=== PATIENT | male | born 1965 | race American Indian/Alaskan Native ===

== ENCOUNTER 2018-01-19 17:01 | Emergency (ER) | payer OTHER ==
[2018-01-19] MEDS ORDERED: TYLENOL ONE (17:12)
[2018-01-19] MEDS ORDERED: NACL 0.9% 1000 ML IV ONE (18:21)
[2018-01-19] MEDS ORDERED: TYLENOL PO ONE (18:24)
[2018-01-19] MEDS ORDERED: VANCOMYCIN VIAL IV ONE (18:24)
[2018-01-19] MEDS ORDERED: DILAUDID IV ONE (18:25)
--- NOTE | 2018-01-19 18:26 | Emergency Department Report ---
ED General Adult HPI - General Chief complaint: Fever Stated complaint: BACK PAIN/FEVER Time Seen by Provider: 01/19/18 18:12 Source: patient, RN notes reviewed, old records reviewed Mode of arrival: Ambulatory Limitations: No Limitations - History of Present Illness Initial comments: This is a pleasant 52-year-old gentleman who is not known to this provider previously, who denies chronic medical conditions. He presents to the ER complaint of nontraumatic paralumbar and parathoracic back pain which is been present for 5 days. The pain is sharp, increases with palpation, decreases with rest. It does not radiate anywhere. he denies headache, neck pain, chest pain, admits to mild lower abdominal pain and denies urinary symptoms. He denies weakness, numbness, saddle anesthesia, bladder or bowel retention incontinence, IV drug use. He also denies cough and to me denies diffuse body myalgias. -: Gradual, days(s) Location: back, abdomen Quality: aching Consistency: intermittent Improves with: rest Worsens with: movement Associated Symptoms: malaise. denies: confusion, chest pain, cough, diaphoresis , fever/chills, headaches, loss of appetite, nausea/vomiting, rash, seizure, shortness of breath, syncope, weakness - Related Data Previous Rx's Medication Instructions Recorded Last Taken Type Ketorolac [Toradol] 10 mg PO Q6H PRN #12 tablet 01/15/18 Unknown Rx methOCARBAMOL [Robaxin TAB] 500 mg PO Q6H PRN #20 tablet 01/15/18 Unknown Rx Allergies Allergy/AdvReac Type Severity Reaction Status Date / Time No Known Allergies Allergy Verified 01/19/18 17:10 ED Review of Systems ROS: Stated complaint: BACK PAIN/FEVER Other details as noted in HPI Comment: All other systems reviewed and negative Musculoskeletal: back pain ED Past Medical Hx - Past Medical History Previous Medical History?: No - Surgical History Past Surgical History?: No - Social History Smoking Status: Never Smoker Substance Use Type: None - Medications Home Medications: Home Medications Medication Instructions Recorded Confirmed Last Taken Type Ketorolac [Toradol] 10 mg PO Q6H PRN #12 tablet 18 01/19/18 Unknown Rx methOCARBAMOL [Robaxin TAB] 500 mg PO Q6H PRN #20 tablet 01/15/18 01/19/18 Unknown Rx ED Physical Exam - General Limitations: No Limitations General appearance: alert, anxious, in distress - Head Head exam: Present: atraumatic, normocephalic - Eye Eye exam: Present: normal appearance, EOMI. Absent: nystagmus - ENT ENT exam: Present: normal exam, normal orophraynx, mucous membranes moist, normal external ear exam - Neck Neck exam: Present: normal inspection, full ROM. Absent: tenderness, meningismus - Respiratory Respiratory exam: Present: normal lung sounds bilaterally. Absent: respiratory distress - Cardiovascular Cardiovascular Exam: Present: regular rate, normal rhythm, normal heart sounds. Absent: bradycardia, tachycardia, irregular rhythm, systolic murmur, diastolic murmur, rubs, gallop - GI/Abdominal GI/Abdominal exam: Present: soft, tenderness, other (there is right lower quadrant and right flank tenderness). Absent: distended, guarding, rebound, rigid, pulsatile mass - Rectal Rectal exam: Present: deferred - Extremities Exam Extremities exam: Present: normal inspection, full ROM, normal capillary refill , other (2+ pulses noted in the bilateral upper, lower extremities. Compartments soft. No long bony tenderness. The pelvis is stable.). Absent: tenderness, pedal edema, joint swelling, calf tenderness - Back Exam Back exam: Present: normal inspection, full ROM, paraspinal tenderness, vertebral tenderness, other (there is distal thoracic and lumbar spine tenderness.). Absent: tenderness, CVA tenderness (R), CVA tenderness (L) - Neurological Exam Neurological exam: Present: alert, oriented X3, CN II-XII intact, other ( Extraocular movements intact. Tongue midline. No facial droop. Facial sensation intact to light touch in the V1, V2, V3 distribution bilaterally. 5 and 5 strength in 4 extremities.. Sensation is intact to light touch in 4 extremities.). Absent: motor sensory deficit (sensation is intact to light touch, pinprick and proprioception in the upper, lower extremities bilaterally.) - Psychiatric Psychiatric exam: Present: normal affect, normal mood - Skin Skin exam: Present: warm, dry, intact, normal color. Absent: rash ED Course Vital Signs 01/19/18 01/19/18 01/19/18 17:10 18:14 18:15 Temperature 101.7 F H Pulse Rate 97 H 95 H 100 H Respiratory 16 16 Rate Blood Pressure 123/78 111/70 O2 Sat by Pulse 99 98 99 Oximetry 01/19/18 01/19/18 01/19/18 18:31 18:45 18:59 Temperature Pulse Rate 77 81 Respiratory 20 22 18 Rate Blood Pressure 111/70 111/70 O2 Sat by Pulse 99 100 Oximetry 01/19/18 01/19/18 01/19/18 19:01 19:15 19:31 Temperature Pulse Rate 76 67 75 Respiratory 13 15 13 Rate Blood Pressure 111/70 135/79 135/79 O2 Sat by Pulse 98 98 97 Oximetry 01/19/18 20:31 Temperature Pulse Rate 80 Respiratory 19 Rate Blood Pressure 135/81 O2 Sat by Pulse 97 Oximetry - Reevaluation(s) Reevaluation #1: 01/19/18 19:42 Differential diagnosis, including but not limited to: Discitis, osteomyelitis, psoas abscess, intra-abdominal infection, pyelonephritis Assessment and plan: 52-year-old male with fever and heart rate greater than 90 , meeting systemic inflammatory response syndrome criteria. He is point tender in his thoracic and lumbar vertebra. He also has mild lower abdominal pain as well, most prominent on the right lower quadrant. He'll be treated empirically according to the sepsis pathway. CT scan of the abdomen and pelvis, as well as dedicated CT scans of the thoracic and lumbar spine pending. If these are nondiagnostic, we will obtain MR studies of the thoracic and lumbar spine to exclude emergent disease. His motor and sensory exam are normal at this time, and not consistent with epidural compression syndrome. Reevaluation #2: 01/19/18 21:24 Patient reports his pain is much improved. CT scan demonstrates left-sided psoas abscess, L2 to L5, with probable osteomyelitis, discitis at the L2, L3 level. This hospital does not have neurosurgery for spine surgery available for consultation. The patient has an emergency medical condition which cannot be definitively managed at this hospital, and he requires transfer to a higher level of care. Contacted [facility], and discussed the case with neurosurgeon, Dr. cantor, who agreed to see the patient in consultation. We are waiting to speak to the hospital physician to arrange transport and transfer. Reevaluation #3: 01/19/18 22:06 Patient accepted to the medical service at [facility] under Dr. Peyton Vieira ED Medical Decision Making - Lab Data Result diagrams: 01/19/18 18:39 01/19/18 18:39 Vital Signs 01/19/18 01/19/18 01/19/18 17:10 18:59 19:01 Temperature 101.7 F H Pulse Rate 97 H Respiratory 16 18 18 Rate Blood Pressure 123/78 O2 Sat by Pulse 99 100 Oximetry Lab Results 01/19/18 01/19/18 01/19/18 Range/Units 18:39 18:39 18:39 WBC 6.2 (4.5-11.0) K/mm3 RBC 4.21 (3.65-5.03) M/mm3 Hgb 11.6 L (11.8-15.2) gm/dl Hct 35.7 (35.5-45.6) % MCV 85 (84-94) fl MCH 28 (28-32) pg MCHC 33 (32-34) % RDW 14.3 (13.2-15.2) % Plt Count 208 (140-440) K/mm3 Lymph % (Auto) 6.5 L (13.4-35.0) % [place] % (Auto) 11.2 H (0.0-7.3) % Eos % (Auto) 0.0 (0.0-4.3) % Baso % (Auto) 0.5 (0.0-1.8) % Lymph # 0.4 L (1.2-5.4) K/mm3 [place] # 0.7 (0.0-0.8) K/mm3 Eos # 0.0 (0.0-0.4) K/mm3 Baso # 0.0 (0.0-0.1) K/mm3 Seg Neutrophils % 81.8 H (40.0-70.0) % Seg Neutrophils # 5.1 (1.8-7.7) K/mm3 APTT (24.2-36.6) Sec. Sodium (137-145) mmol/L Potassium (3.6-5.0) mmol/L Chloride (98-107) mmol/L Carbon Dioxide (22-30) mmol/L Anion Gap mmol/L BUN (9-20) mg/dL Creatinine (0.8-1.5) mg/dL Estimated GFR ml/min BUN/Creatinine Ratio % Glucose (75-100) mg/dL Lactic Acid 1.00 (0.7-2.0) mmol/L Calcium (8.4-10.2) mg/dL Total Bilirubin (0.1-1.2) mg/dL AST (5-40) units/L ALT (7-56) units/L Alkaline Phosphatase (35-129) units/L Total Creatine Kinase (55-170) units/L Total Protein (6.3-8.2) g/dL Albumin (3.9-5) g/dL Albumin/Globulin Ratio % Blood Type O POSITIVE Antibody Screen Negative 01/19/18 01/19/18 01/19/18 Range/Units 18:39 18:39 18:39 WBC (4.5-11.0) K/mm3 RBC (3.65-5.03) M/mm3 Hgb (11.8-15.2) gm/dl Hct (35.5-45.6) % MCV (84-94) fl MCH (28-32) pg MCHC (32-34) % RDW (13.2-15.2) % Plt Count (140-440) K/mm3 Lymph % (Auto) (13.4-35.0) % [place] % (Auto) (0.0-7.3) % Eos % (Auto) (0.0-4.3) % Baso % (Auto) (0.0-1.8) % Lymph # (1.2-5.4) K/mm3 [place] # (0.0-0.8) K/mm3 Eos # (0.0-0.4) K/mm3 Baso # (0.0-0.1) K/mm3 Seg Neutrophils % (40.0-70.0) % Seg Neutrophils # (1.8-7.7) K/mm3 APTT 33.7 (24.2-36.6) Sec. Sodium 137 (137-145) mmol/L Potassium 4.7 (3.6-5.0) mmol/L Chloride 99.2 (98-107) mmol/L Carbon Dioxide 26 (22-30) mmol/L Anion Gap 17 mmol/L BUN 22 H (9-20) mg/dL Creatinine 0.9 (0.8-1.5) mg/dL Estimated GFR > 60 ml/min BUN/Creatinine Ratio 24 % Glucose 116 H (75-100) mg/dL Lactic Acid (0.7-2.0) mmol/L Calcium 9.4 (8.4-10.2) mg/dL Total Bilirubin 0.60 (0.1-1.2) mg/dL AST 42 H (5-40) units/L ALT 46 (7-56) units/L Alkaline Phosphatase 62 (35-129) units/L Total Creatine Kinase 118 (55-170) units/L Total Protein 7.5 (6.3-8.2) g/dL Albumin 3.5 L (3.9-5) g/dL Albumin/Globulin Ratio 0.9 % Blood Type Antibody Screen - Radiology Data Radiology results: report reviewed, image reviewed Critical care attestation.: If time is entered above; I have spent that time in minutes in the direct care of this critically ill patient, excluding procedure time. ED Disposition Clinical Impression: Psoas abscess, left Sepsis Qualifiers: Sepsis type: sepsis due to unspecified organism Qualified Code(s): A41.9 - Sepsis, unspecified organism Disposition: DC/TX-70 ANOTHER TYPE [facility] Is pt being admited?: No Does the pt Need Aspirin: No Condition: Good Referrals: PRIMARY CARE, [Primary Care Provider] - 3-5 Days
[2018-01-19] MEDS ORDERED: MAXIPIME/NS 2 GM/100 ML 2 GM/100 ML BAG IV SCH (19:00)
[2018-01-19] MEDS ORDERED: VANCOMYCIN/NS 1 GM/250 ML 1 GM/250 ML BAG IV ONE (19:00)
[2018-01-19 19:05] LABS: Basophils % (Auto) 0.5 % (0.0-1.8); Hematocrit 35.7 % (35.5-45.6); Hemoglobin 11.6 gm/dl (11.8-15.2); Lymphocytes # (Auto) 0.4 K/mm3 (1.2-5.4); Lymphocytes % (Auto) 6.5 % (13.4-35.0); Mean Corpuscular HGB Conc 33 % (32-34); Mean Corpuscular Hemoglobin 28 pg (28-32); Mean Corpuscular Volume 85 fl (84-94); Monocytes # (Auto) 0.7 K/mm3 (0.0-0.8); Monocytes % (Auto) 11.2 % (0.0-7.3); Platelet Count 208 K/mm3 (140-440); Red Blood Count 4.21 M/mm3 (3.65-5.03); Red Cell Distribution Width 14.3 % (13.2-15.2)
[2018-01-19 19:25] LABS: Alanine Aminotransferase 46 units/L (7-56); Albumin 3.5 g/dL (3.9-5); BUN/Creatinine Ratio 24; Blood Urea Nitrogen 22 mg/dL (9-20); Calcium 9.4 mg/dL (8.4-10.2); Hemolysis Index 1
--- NOTE | 2018-01-19 20:44 | Cat Scan Report ---
FINAL REPORT EXAM: CT THORACIC SPINE WO CON HISTORY: back pain, fever, ? discitis versus osteomytlieis TECHNIQUE: Axial helical imaging through the thoracic spine with sagittal and coronal reformatted images obtained. Comparison: CT lumbar spine also performed today and CT abdomen and pelvis also performed today FINDINGS: Bony alignment is normal. The vertebral heights are maintained. There is a small nonspecific area of decreased density in the T3 vertebral body on the left. There is slight loss of height of multiple thoracic discs. There is no evidence of degenerative endplate change. There is no evidence of significant bony canal stenosis. Visualization detail the contents of the cervical canal is limited. Paraspinous soft tissues are unremarkable. IMPRESSION: 1. No evidence of diskitis and no definite evidence of osteomyelitis of the thoracic spine. 2. Small nonspecific area of decreased density in the T3 vertebral body on the left. Comparison with previous CT of the chest or CT thoracic spine would be helpful. If further imaging is required, MRI may be helpful.
--- NOTE | 2018-01-19 20:54 | Cat Scan Report ---
FINAL REPORT EXAM: CT ABDOMEN PELVIS W CON HISTORY: rlq abd pain back pain TECHNIQUE: Following IV administration of 100 cc of Omnipaque 350 axial helical imaging was performed through the abdomen and pelvis with sagittal and coronal reformatted images obtained. Comparison: CT lumbar spine also performed today FINDINGS: The lung bases are notable for areas of pulmonary consolidation in both lung bases. Atelectasis versus infiltrates versus combination of both. Heart is enlarged. The liver, spleen, pancreas, kidneys and adrenal glands are unremarkable in appearance. The gallbladder is moderately distended and unremarkable in appearance. The bowel is normal caliber. There is a moderate amount of stool in the ascending and descending colon. The appendix is normal caliber. There is a small amount of free fluid in the pelvis. There is no evidence of pneumoperitoneum. The abdominal aorta is normal caliber. There is no evidence of pathologic intra-abdominal adenopathy by CT size criteria. The urinary bladder is moderately distended and unremarkable in appearance. The prostate gland appears to be normal size. The bony structures are notable for spondylitic change of the lumbar spine. There is loss of height of the L2-L3, L3-L4 and L4-L5 discs the. There is the appearance of lytic change in the inferior endplate of L2 and superior endplate of L3 There is abnormal paraspinous soft tissue at the level of L2-L3 with the appearance of moderate to marked canal stenosis at this level. There is a low-attenuation collection with marginal enhancement in the left psoas muscle that extends from L2 inferiorly to L5. There is diffuse increase in size and heterogeneous appearance of the left psoas muscle. IMPRESSION: 1. Findings most consistent with an abscess in the left psoas muscle with myositis of the left psoas muscle. 2. Abnormal soft tissues in the paraspinous soft tissues at the level of L2-L3 with the appearance of lytic change in the associated endplates and canal stenosis at this level. Discitis/osteomyelitis needs to be considered. MRI with and without gadolinium would be helpful for further evaluation. 3. Small amount of free fluid in the pelvis. 4. Cardiomegaly.
--- NOTE | 2018-01-19 20:58 | Cat Scan Report ---
FINAL REPORT EXAM: CT LUMBAR SPINE WO CON HISTORY: back pain, fever, ? discitis versus osteomytlieis TECHNIQUE: Axial helical imaging through the lumbar spine with sagittal and coronal reformatted images obtained. Comparison: CT abdomen and pelvis also performed today FINDINGS: Bony alignment is normal. The vertebral heights are maintained. There is loss of height of the L2-L3, L3-L4 and L5-S1 discs the. There is possible erosive change in the inferior endplate of L2 and superior endplate of L3 anteriorly. There is abnormal paraspinous soft tissue at the L2-L3 level. There is multiple level canal stenosis secondary to spondylitic change. The canal stenosis appears to be most marked at the L2-L3 level. IMPRESSION: 1. 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 The canal stenosis appears to be most marked at L2-L3. 2. Appearance of abnormal paraspinous soft tissue at the L2-L3 level with possible erosive changes in the endplates at this level. This is concerning for discitis/osteomyelitis this patient with a recently demonstrated probable left psoas abscess. MRI lumbar spine without and with gadolinium would be helpful for further evaluation.
[2018-01-19 22:16] VITALS: BP 127/78
[2018-01-19 22:22] LABS: Bilirubin,Urine NEG (Negative); Blood,Urine SM (Negative); Color,Urine Yellow (Yellow); Mucus,Urine FEW /HPF; Protein,Urine <15 mg/dL mg/dL (Negative); Urobilinogen,Urine < 2.0 mg/dL (<2.0)
== END 2018-01-19 23:03 | disposition other institution (70) ==
LOC: ED 17:01
DX: K68.12 Psoas muscle abscess (principal); A41.9 Sepsis, unspecified organism
CPT/HCPCS: 36415; 72128; 72131; 74177; 80053; 81001; 82140; 82550; 82962; 85025; 85652; 85730; 86140; 86850; 86900; 86901; 87040; 87086; 96365; 96366; 96368; 99285; J0692; J1170; J3370; J7030; Q9967